=== PATIENT | female | born 2000 | race Caucasian/White ===

== ENCOUNTER 2022-03-30 21:42 | Emergency (ER) | payer OTHER ==
[2022-03-30 21:58] VITALS: BP 119/74; PULSE 80; TEMP 98; BMI 30.9
== END 2022-03-31 01:53 | disposition home or self-care (01) ==
LOC: JERFT 21:42 → JER 21:42
DX: R59.9 Enlarged lymph nodes, unspecified (principal)
CPT/HCPCS: 99281-25